=== PATIENT | female | born 1945 | race African-American/Black ===

== ENCOUNTER 2024-08-13 16:11 | Emergency (ER) | payer OTHER ==
[~2024-08-13] VITALS: Ht 165.1 cm; Wt 90.0 kg
[2024-08-13 16:12] VITALS: O2SAT 97
[2024-08-13] MEDS: KETOROLAC 15MG/ML VIAL IM ONE (16:36)
[2024-08-13 20:02] LABS: BASOPHILS % 0.2 % (0.0-2.0); HEMATOCRIT. 40.5 % (36.0-48.0); HEMOGLOBIN. 13.7 g/dL (12.0-16.0); LYMPHOCYTES % 11.7 % (20.0-50.0); MEAN CORPUSCULAR HEMOGLOBIN 30.6 pg (28.0-32.0); MEAN CORPUSCULAR HGB CONC 33.8 g/dL (31.0-37.0); MEAN CORPUSCULAR VOLUME 90.7 fL (81.0-99.0); MONOCYTES % 3.7 % (2.0-8.0); NEUTROPHILS % 84.4 % (40.0-76.0); PLATELET 307 x1000/uL (130-400); RED BLOOD CELL COUNT 4.47 mill/uL (4.2-5.4); RED CELL DISTRIBUTION WIDTH 14.9 % (11.6-14.6); WHITE BLOOD COUNT 9.8 x1000/uL (4.5-11.0)
[2024-08-13 20:12] LABS: CHLORIDE 108 mEq/L (98-107); PROTHROMBIN TIME 10.7 sec (9.6-11.0); SODIUM 141 mEq/L (136-145)
[2024-08-13 20:13] LABS: CARBON DIOXIDE 27 mEq/L (21-32)
[2024-08-13 20:14] LABS: CALCIUM 9.4 mg/dL (8.7-10.4)
[2024-08-13 20:18] LABS: CREATININE 0.9 mg/dL (0.6-1.0); GLUCOSE 101 mg/dL (70-105)
[2024-08-13 20:19] LABS: UREA NITROGEN BLOOD 11 mg/dL (9-23)
[2024-08-13] MEDS: HYDROCODONE/ACETAMINOPHEN 5/325MG TABLET PO PRN (22:18)
[2024-08-13 23:26] VITALS: BP 166/85; PULSE 85; RESP 18; TEMP 36.9; O2SAT 97
== END 2024-08-14 00:31 | disposition short-term general hospital (02) ==
LOC: ER 16:11
DX: S72.002A Fracture of unspecified part of neck of left femur, initial encounter for closed fracture (principal); W19.XXXA Unspecified fall, initial encounter; Y93.89 Activity, other specified; Y92.89 Other specified places as the place of occurrence of the external cause; Y99.8 Other external cause status
CPT/HCPCS: 99285; 80048; 85025; 85610; 86850; 86900; 86901; 36415; 73502; 73552; 96372; J1885; A4606